=== PATIENT | male | born 1950 | race Caucasian/White ===

== ENCOUNTER → 2017-08-31 | Outpatient (CLI) | payer OTHER | LOC: CIMAGING 14:58 | PROVIDERS: ATTEND Family Medicine | DX: J84.10 Pulmonary fibrosis, unspecified (principal) | CPT/HCPCS: 71046-PO ==

== ENCOUNTER → 2017-09-16 | Outpatient (CLI) | payer OTHER | LOC: CIMAGING 14:36 | PROVIDERS: ATTEND Family Medicine | DX: J98.4 Other disorders of lung (principal) | CPT/HCPCS: 71046-PO ==